=== PATIENT | male | born 1965 | race Caucasian/White ===

== ENCOUNTER → 2023-07-13 14:58 | Outpatient (REF) | payer BC, SELFPAY | LOC: RAD 14:58 | PROVIDERS: ATTENDING PHYSICIAN Physician Assistant Medical | DX: M79.604 Pain in right leg (principal); M79.89 Other specified soft tissue disorders | CPT/HCPCS: 73564; 93971 ==

== ENCOUNTER → 2023-07-24 07:35 | Outpatient (REF) | payer BC, SELFPAY | LOC: EMG 07:35 | PROVIDERS: ATTENDING PHYSICIAN Physician Assistant Medical | DX: R20.2 Paresthesia of skin (principal); M54.10 Radiculopathy, site unspecified | CPT/HCPCS: 95886; 95913 ==